=== PATIENT | male | born 1935 | race Caucasian/White ===

== ENCOUNTER → 2017-01-16 | Outpatient (CLI) | payer BC ==
[~2017-01-16] MED LIST: ASPCH81 PO; CHOL100010 PO; CLTP PO; ESTER C PO; GARLTAB3 PO; HYDC25 PO; ISOS60TA25 PO; LISI-461 PO; NITR0.4S UT; OCUVITE PO; OMEG10007 PO; PSYL55.43; SELENIUM PO; SIMV20TA2 PO; flaxseed oil
[2017-01-16 09:36] LABS: BASO % 0.1 %; BASO ABS # 0.01 K/uL (0-0.2); COMPLETE YES; EOS % 2.2 %; HEMATOCRIT 39.2 % (42-52); IG% 0.3 %; LYMPH % 27.1 %; LYMPH ABS # 1.81 K/uL (1.2-3.4); MEAN CELL VOLUME 98.5 fL (80-100); MEAN CORPUSCULAR HEMOGLOBIN 33.2 pg (25-34); MEAN CORPUSCULAR HGB CONC 33.7 g/dl (32-36); MONO % 10.3 %; PLATELET COUNT 238 K/uL (130-400); RED BLOOD COUNT 3.98 M/uL (4.7-6.1); WHITE BLOOD COUNT 6.69 K/uL (4.8-10.8)
[2017-01-16 10:35] LABS: ALT/SGPT 25 U/L (12-78); AST/SGOT 22 U/L (15-37); BLOOD UREA NITROGEN 28 mg/dl (7-18); BUN/CREATININE RATIO 20.3 (10-20); CARBON DIOXIDE 28 mmol/L (21-32); CHLORIDE 105 mmol/L (98-107); GLUCOSE 95 mg/dl (70-99); SODIUM 140 mmol/L (136-145); TRIGLYCERIDES 107 mg/dl (0-150); URIC ACID 5.4 mg/dl (2.6-7.2); VERY LOW DENSITY LIPOPROT CALC 21 mg/dl
[2017-01-16 10:41] LABS: ALB/GLOB RATIO 1.2 (0.9-2); ALKALINE PHOSPHATASE 78 U/L (45-117); CHOLESTEROL 113 mg/dl (0-200); CHOLESTEROL/HDL RATIO 2.8; HDL CHOLESTEROL 41 mg/dl; LDL CHOLESTEROL CALCULATED 51 mg/dl; PHOSPHORUS 2.6 mg/dl (2.5-4.9); PROSTATE SPECIFIC ANTIGEN 0.025 ng/ml (0.000-4.000); THYROID STIMULATING HORMONE 0.548 uIu/ml (0.300-4.500)
[2017-01-16 10:51] LABS: ESTIMATED AVERAGE GLUCOSE 123 mg/dl; HA1C FLAG Normal (Normal)
[2017-01-17 12:07] LABS: C-REACTIVE PROT HIGHSEN 1.4 MG/L
--- NOTE | 2017-01-21 11:38 | CODING QUERY MEDICAL NECESSITY ---
SUPPORTING DIAGNOSIS NEEDED Dr. Doshi, A supporting diagnosis is required for the test/procedure performed on this patient in order for us to be reimbursed by the patient's insurance. Please provide a supporting diagnosis for the following test/procedure listed below next to the test name along with your signature. *If there is no additional diagnosis for this patient that would support the following test/procedure please document that below next to the test/procedure. Test(s)/Procedure(s) that require a supporting diagnosis: * ([id number]) C-REACTIVE PROTEIN HIGH SENSITIVITY DIAGNOSIS: DATE OF SERVICE: 01/16/17 Provider Signature: Date: Thank you Thomas Martinez [facility] Information Management Once completed, please kindly fax back to [phone] For questions please call [phone]
== END | disposition home or self-care (01) ==
LOC: C.LAB 08:20
PROVIDERS: ATTEND Family Medicine
DX: R73.09 Other abnormal glucose (principal); E55.9 Vitamin D deficiency, unspecified; D51.9 Vitamin B12 deficiency anemia, unspecified; N40.0 Benign prostatic hyperplasia without lower urinary tract symptoms

== ENCOUNTER → 2017-04-11 | Outpatient (CLI) | payer BC ==
--- NOTE | 2017-04-11 17:34 | DIAGNOSTIC IMAGING REPORT ---
BILATERAL LOWER EXTREMITY VENOUS DOPPLER HISTORY: RIGHT LEG, PAIN AND SWELLING COMPARISON STUDY: Duplex study 03/11/2007. FINDINGS: There is normal compressibility, flow, and augmentation within the right lower extremity deep venous system. There is limited visualization of the right common femoral vein due to body habitus. IMPRESSION: No evidence of deep venous thrombosis within the right lower extremity. Electronically signed by: David Mojica M.D. 04/11/2017 5:33 PM Dictated Date/Time: 04/11/2017 5:31 PM
== END | disposition home or self-care (01) ==
LOC: C.ULTR 16:56
PROVIDERS: ATTEND Family Medicine
DX: M79.604 Pain in right leg (principal); M79.89 Other specified soft tissue disorders

== ENCOUNTER → 2017-05-21 | Outpatient (CLI) | payer BC | END | disposition home or self-care (01) | LOC: C.MAMM 13:19 | PROVIDERS: ATTEND Family Medicine | DX: M81.0 Age-related osteoporosis without current pathological fracture (principal) ==

== ENCOUNTER → 2017-05-27 | Outpatient (CLI) | payer BC ==
--- NOTE | 2017-05-27 08:29 | DIAGNOSTIC IMAGING REPORT ---
KUB CLINICAL HISTORY: 82 years-old Male presenting with malignant neoplasm of the prostate, nephrolithiasis. TECHNIQUE: Single supine view of the abdomen was obtained. COMPARISON: 05/03/2014. FINDINGS: Stool and bowel gas degrade evaluation of the renal shadows. Allowing for this limitation, no convincing calcifications project over the kidneys or along the courses of the ureters. Moderate stool burden in the right colon. A segment of small bowel in the left abdomen measures 3.4 cm in diameter, which may be secondary to magnification in the absence of abdominal symptoms. Extensive degenerative changes of the spine again noted. IMPRESSION: 1. No radiographic evidence of nephrolithiasis. Electronically signed by: Wolf Cruz M.D. 05/27/2017 8:28 AM Dictated Date/Time: 05/27/2017 8:26 AM
== END | disposition home or self-care (01) ==
LOC: C.RAD 07:50
PROVIDERS: ATTEND Urology
DX: C61 Malignant neoplasm of prostate (principal); N20.0 Calculus of kidney

== ENCOUNTER 2017-11-06 10:27 | Emergency (ER) | payer BC ==
[2017-11-06 10:37] VITALS: TEMP 36.5
[2017-11-06 11:50] LABS: BASO % 0.1 %; BASO ABS # 0.01 K/uL (0-0.2); HEMATOCRIT 35.4 % (42-52); HEMOGLOBIN 12.8 g/dL (14.0-18.0); IG# 0.01 K/uL (0.00-0.02); LYMPH % 11.8 %; MEAN CELL VOLUME 94.1 fL (80-100); MEAN CORPUSCULAR HGB CONC 36.2 g/dl (32-36); MEAN PLATELET VOLUME 9.4 fL (7.4-10.4); MONO % 7.7 %; MONO ABS # 0.59 K/uL (0.11-0.59); NEUT % 80.3 %; NEUT ABS # 6.13 K/uL (1.4-6.5); PLATELET COUNT 205 K/uL (130-400); RED CELL DISTRIBUTION WIDTH CV 13.2 % (11.5-14.5); RED CELL DISTRIBUTION WIDTH SD 45.6 fL (36.4-46.3); WHITE BLOOD COUNT 7.64 K/uL (4.8-10.8)
[2017-11-06 12:16] LABS: ALBUMIN 3.6 gm/dl (3.4-5.0); ALT/SGPT 22 U/L (12-78); BLOOD UREA NITROGEN 27 mg/dl (7-18); CARBON DIOXIDE 27 mmol/L (21-32); CREATININE 1.43 mg/dl (0.60-1.40); GLUCOSE 124 mg/dl (70-99); LIPASE 263 U/L (73-393); POTASSIUM 3.7 mmol/L (3.5-5.1); SODIUM 135 mmol/L (136-145)
[2017-11-06 12:19] LABS: ALKALINE PHOSPHATASE 84 U/L (45-117); AST/SGOT 22 U/L (15-37); TOTAL PROTEIN 6.9 gm/dl (6.4-8.2)
--- NOTE | 2017-11-06 12:23 | DIAGNOSTIC IMAGING REPORT ---
(RENAL)RETROPERITON COMP HISTORY: Hematuria hematuria COMPARISON: None. FINDINGS: Right kidney: Maximum dimension 8.2 cm. No evidence for hydronephrosis. Mild cortical atrophy. Left kidney: Maximum dimension 10.7 cm. No evidence for hydronephrosis. Normal corticomedullary differentiation and cortical thickness. Bladder: No bladder wall thickening. The bilateral ureteral jets were identified. IMPRESSION: Mild cortical atrophy/scarring right kidney. Otherwise negative study. The above report was generated using voice recognition software. It may contain grammatical, syntax or spelling errors. Electronically signed by: Lambert Carlin M.D. 11/06/2017 12:21 PM Dictated Date/Time: 11/06/2017 12:19 PM
[2017-11-06] MEDS ORDERED: ISR/5 PO (12:39)
[2017-11-06] MEDS ORDERED: ISOS60TA25 PO (12:39)
[2017-11-06] MEDS ORDERED: OMEG10007 PO (12:39)
[2017-11-06] MEDS ORDERED: CHOL1000 PO (12:39)
[2017-11-06] MEDS ORDERED: ASPI81TA28 PO (12:39)
[2017-11-06] MEDS ORDERED: HYDR12.55 PO (12:39)
[2017-11-06] MEDS ORDERED: SIMV20TA2 PO (12:39)
[2017-11-06] MEDS ORDERED: CALCCAP15 PO (12:39)
[2017-11-06] MEDS ORDERED: MULT-190 PO (12:39)
[2017-11-06] MEDS ORDERED: LISI-461 PO (12:39)
[2017-11-06] MEDS ORDERED: BIOF500T PO (12:39)
[2017-11-06] MEDS ORDERED: NTRGSL/4 UT (12:39)
[2017-11-06] MEDS ORDERED: SELE1TAB5 PO (12:39)
[2017-11-06] MEDS ORDERED: PSYL0.524 PO (12:39)
[2017-11-06 13:16] VITALS: BP 133/64; PULSE 63; O2SAT 95
--- NOTE | 2017-11-06 16:46 | EMERGENCY ROOM VISIT NOTE ---
History Report prepared by Suhail: Oh Smith Under the Supervision of: Dr. Erick Goldstein D.O. First contact with patient: 10:52 Chief Complaint: URINARY SYMPTOMS Stated Complaint: BLEEDING FROM PENIS Nursing Triage Summary: Pt. reports that he woke up this morning and went to the bathroom to void. He states that after he voided, he wiped the tip of his penis and there was blood on the toilet paper. He denies any other urinary symptoms, flank pain or abdominal pain. Reports history of kidney stone years ago. History of Present Illness The patient is a 82 year old male who presents to the Emergency Room with complaints of hematuria that began this morning. He has a past medical history of cellulitis, an aortic valve replacement, and kidney stones. He woke up this morning as usual and went to the bathroom. After he was finished, he wiped the tip of his penis with toilet paper and found a couple spots of blood. He could not see if there was any blood in his stream. Pt denies recent trauma, falls, headache, change in vision, fevers, chest pain, shortness of breath, abdominal pain, nausea, vomiting, diarrhea, back pain, pain with urination, urinary frequency, and melena. When he arrived to the ER, he gave a urine sample and states that he did not see any gross amount of blood. He takes a baby Aspirin daily without any other blood thinners. Source of History: patient Onset: this morning Position: other () Symptom Intensity: mild Quality: other (Hematuria) Timing: constant Associated Symptoms: No fevers, No headache, No chest pain, No SOB, No nausea, No vomiting, No abdominal pain, No back pain, No melena, No diarrhea, No urinary symptoms (burning, frequency) Review of Systems See HPI for pertinent positives & negatives. A total of 10 systems reviewed and were otherwise negative. Past Medical & Surgical Medical Problems: (1) Cellulitis (2) Kidney stone Surgical Problems: (1) H/O aortic valve replacement Family History Omitted secondary to the patient's age. Social History Smoking Status: Never Smoker Smokeless Tobacco Use: No Drug Use: none Marital Status: single Housing Status: lives alone Occupation Status: retired Current/Historical Medications Scheduled Aspirin (Aspirin Ec), 81 MG PO DAILY Bioflavonoid Products (Dilcia-C), 1 TAB PO DAILY Calcium Carbonate-Cholecalcife (Calcium Plus Vitamin D3), 2 CAP PO DAILY Cholecalciferol (Vitamin D3), 1 TAB PO DAILY Fish Oil ([place]-3), 2 CAP PO DAILY Hydrochlorothiazide (Hydrochlorothiazide), 1 TAB PO DAILY Isosorbide Dinitrate (Isordil), 5 MG PO DAILY Isosorbide Mononitrate Ext Rel (Imdur Ext Rel), 60 MG PO QAM Lisinopril (Zestril), 10 MG PO DAILY Nitroglycerin (Nitrostat), 0.4 MG UT PRN Ocuvite Preservision (Ocuvite Preservision), 1 TAB PO DAILY Psyllium (Metamucil), 1 CAP PO DAILY Selenium-Yeast (Selenium), 200 MCG PO UD Simvastatin (Zocor), 20 MG PO QPM Allergies Coded Allergies: Niacin (Unverified Adverse Reaction, Intermediate, hot flashes, 11/06/17) Physical Exam Vital Signs Date Time Temp Pulse Resp B/P (MAP) Pulse Ox O2 Delivery O2 Flow Rate FiO2 11/06/17 13:16 63 14 133/64 95 11/06/17 12:40 63 14 133/64 95 Room Air 11/06/17 11:30 62 16 147/70 97 Room Air 11/06/17 10:37 36.5 76 20 144/71 96 Room Air Physical Exam GENERAL: Sitting up in bed, alert, well appearing, well nourished, no distress, non-toxic EYE EXAM: normal conjunctiva. OROPHARYNX: no exudate, no erythema, lips, buccal mucosa, and tongue normal and mucous membranes are moist NECK: supple, no nuchal rigidity, no adenopathy, non-tender LUNGS: Clear to auscultation. Normal chest wall mechanics HEART: no murmurs, S1 normal and S2 normal ABDOMEN: abdomen soft, non-tender, normo-active bowel sounds, no masses, no rebound or guarding. : Normal external genitalia. Small amount of dried blood on the underwear. SKIN: no rashes and no bruising UPPER EXTREMITIES: upper extremities are grossly normal. LOWER EXTREMITIES: No pitting edema. NEURO EXAM: Normal sensorium, cranial nerves II-XII grossly intact, normal speech, no gross weakness of arms, no gross weakness of legs. Medical Decision & Procedures ER Provider Diagnostic Interpretation: Radiology results as stated below per my review and the radiologist's interpretation: (RENAL)RETROPERITON COMP HISTORY: Hematuria hematuria COMPARISON: None. FINDINGS: Right kidney: Maximum dimension 8.2 cm. No evidence for hydronephrosis. Mild cortical atrophy. Left kidney: Maximum dimension 10.7 cm. No evidence for hydronephrosis. Normal corticomedullary differentiation and cortical thickness. Bladder: No bladder wall thickening. The bilateral ureteral jets were identified. IMPRESSION: Mild cortical atrophy/scarring right kidney. Otherwise negative study. The above report was generated using voice recognition software. It may contain grammatical, syntax or spelling errors. Electronically signed by: Lambert Carlin M.D. 11/06/2017 12:21 PM Dictated Date/Time: 11/06/2017 12:19 PM Laboratory Results 11/06/17 11:30 Red Blood Count 3.76, Mean Corpuscular Volume 94.1, Mean Corpuscular Hemoglobin 34.0, Mean Corpuscular Hemoglobin Concent 36.2, Mean Platelet Volume 9.4, Neutrophils (%) (Auto) 80.3, Lymphocytes (%) (Auto) 11.8, Monocytes (%) (Auto) 7.7, Eosinophils (%) (Auto) 0.0, Basophils (%) (Auto) 0.1, Neutrophils # (Auto) 6.13, Lymphocytes # (Auto) 0.90, Monocytes # (Auto) 0.59, Eosinophils # (Auto) 0.00, Basophils # (Auto) 0.01 11/06/17 11:30 Test 11/06/17 10:50 11/06/17 11:30 Urine Color YELLOW Urine Appearance CLEAR (CLEAR) Urine pH 5.5 (4.5-7.5) Urine Specific [place] 1.015 (1.000-1.030) Urine Protein NEG (NEG) Urine Glucose (UA) NEG (NEG) Urine Ketones NEG (NEG) Urine Occult Blood 2+ (NEG) Urine Nitrite NEG (NEG) Urine Bilirubin NEG (NEG) Urine Urobilinogen NEG (NEG) Urine Leukocyte Esterase NEG (NEG) Urine WBC (Auto) 0 /hpf (0-5) Urine RBC (Auto) >30 /hpf (0-4) Urine Hyaline Casts (Auto) 0 /lpf (0-5) Urine Epithelial Cells (Auto) 0-5 /lpf (0-5) Urine Bacteria (Auto) NEG (NEG) White Blood Count 7.64 K/uL (4.8-10.8) Red Blood Count 3.76 M/uL (4.7-6.1) Hemoglobin 12.8 g/dL (14.0-18.0) Hematocrit 35.4 % (42-52) Mean Corpuscular Volume 94.1 fL (80-100) Mean Corpuscular Hemoglobin 34.0 pg (25-34) Mean Corpuscular Hemoglobin Concent 36.2 g/dl (32-36) Platelet Count 205 K/uL (130-400) Mean Platelet Volume 9.4 fL (7.4-10.4) Neutrophils (%) (Auto) 80.3 % Lymphocytes (%) (Auto) 11.8 % Monocytes (%) (Auto) 7.7 % Eosinophils (%) (Auto) 0.0 % Basophils (%) (Auto) 0.1 % Neutrophils # (Auto) 6.13 K/uL (1.4-6.5) Lymphocytes # (Auto) 0.90 K/uL (1.2-3.4) Monocytes # (Auto) 0.59 K/uL (0.11-0.59) Eosinophils # (Auto) 0.00 K/uL (0-0.5) Basophils # (Auto) 0.01 K/uL (0-0.2) RDW Standard Deviation 45.6 fL (36.4-46.3) RDW Coefficient of Variation 13.2 % (11.5-14.5) Immature Granulocyte % (Auto) 0.1 % Immature Granulocyte # (Auto) 0.01 K/uL (0.00-0.02) Anion Gap 7.0 mmol/L (3-11) Estimated GFR () 51.8 Estimated GFR (Non- 44.7 BUN/Creatinine Ratio 19.1 (10-20) Calcium Level 9.0 mg/dl (8.5-10.1) Total Bilirubin 0.4 mg/dl (0.2-1) Direct Bilirubin 0.1 mg/dl (0-0.2) Aspartate Amino Transf (AST/SGOT) 22 U/L (15-37) Alanine Aminotransferase (ALT/SGPT) 22 U/L (12-78) Alkaline Phosphatase 84 U/L (45-117) Total Protein 6.9 gm/dl (6.4-8.2) Albumin 3.6 gm/dl (3.4-5.0) Lipase 263 U/L (73-393) Laboratory results per my review. ED Course ED COURSE: Vital signs were reviewed and showed normal vitals The patients medical record was reviewed The above diagnostic studies were performed and reviewed. ED treatments and interventions as stated above. 1052: The patient was evaluated in room C9. A complete history and physical examination was performed. 1300: Upon reevaluation, the patient is resting.I discussed my findings with the patient and he understands and agrees with the treatment plan. Based on the patients age, coexisting illnesses, exam and lab findings the decision to treat as an outpatient was made. The patient remained stable while under my care. The patient appeared well at the time of discharge. Medical Decision Differential diagnoses include, but are not limited to: UTI, proctitis, prostatitis, urethral trauma, cancer, renal cyst, and kidney stone. Patient is a 82-year-old male who presents to ER for blood at the tip of his penis following voiding this morning. No trauma. No other complaints. No blood thinners. CBC along with BMP, LFTs, bilirubin and lipase is unremarkable. UA was unremarkable. Ultrasound of the kidneys and bladder shows no acute pathology. Urine did not show gross hematuria. Based on his presentation I felt was reasonable to discharge him and have him follow-up as an outpatient. He will follow-up with his urologist within the week. Discussed with Pt concerning signs and symptoms to watch out for. Pt was instructed to follow up with their PCP and discussed with the patient their option to return to the ED at anytime for persistent or worsening symptoms. The appropriate anticipatory guidance and out-patient management, including indications for return to the emergency department, were explained at length to the patient and understood. Medication Reconcilliation Current Medication List: was personally reviewed by me Blood Pressure Screening Patient's blood pressure: Normal blood pressure Blood pressure disposition: Did not require urgent referral Impression Primary Impression: Hematuria Scribe Attestation The scribe's documentation has been prepared under my direction and personally reviewed by me in its entirety. I confirm that the note above accurately reflects all work, treatment, procedures, and medical decision making performed by me. Departure Information Dispostion Home / Self-Care Referrals Óscar Doshi M.D. (PCP) Kris Sifuentes M.D. Forms HOME CARE DOCUMENTATION FORM, IMPORTANT VISIT INFORMATION Patient Instructions Hematuria Poss Causes, My [employer] Additional Instructions Please follow up with your primary care doctor or if you are a student, [facility] with in the next 24 hours. Any worsening of your symptoms, please return to the ED immediately. This includes any fevers greater than 100.4, worsening pain, chest pain, shortness breath, persistent nausea, vomiting, unable to eat or drink, or any other concerning signs or symptoms from your standpoint. Problem Qualifiers Primary Impression: Hematuria Hematuria type: unspecified type Qualified Codes: R31.9 - Hematuria, unspecified
== END 2017-11-06 13:10 | disposition home or self-care (01) ==
LOC: C.EDB 10:28 → C.EDC 13:10
DX: R31.9 Hematuria, unspecified (principal); Z79.82 Long term (current) use of aspirin; Z95.2 Presence of prosthetic heart valve; Z87.442 Personal history of urinary calculi; Z88.9 Allergy status to unspecified drugs, medicaments and biological substances

== ENCOUNTER → 2017-11-11 | Outpatient (CLI) | payer BC ==
[~2017-11-11] MED LIST changes: -ASPCH81 PO; +ASPI81TA28 PO; +BIOF500T PO; +CALCCAP15 PO; +CHOL1000 PO; -CHOL100010 PO; -CLTP PO; -ESTER C PO; -GARLTAB3 PO; -HYDC25 PO; +HYDR12.55 PO; +ISR/5 PO; +MULT-190 PO; -NITR0.4S UT; +NTRGSL/4 UT; -OCUVITE PO; +PSYL0.524 PO; -PSYL55.43; +SELE1TAB5 PO; -SELENIUM PO; -flaxseed oil
[2017-11-11 10:37] LABS: BASO % 0.2 %; BASO ABS # 0.01 K/uL (0-0.2); EOS ABS # 0.13 K/uL (0-0.5); HEMATOCRIT 38.3 % (42-52); HEMOGLOBIN 13.2 g/dL (14.0-18.0); IG# 0.01 K/uL (0.00-0.02); LYMPH % 26.6 %; LYMPH ABS # 1.75 K/uL (1.2-3.4); MEAN CELL VOLUME 98.5 fL (80-100); MEAN CORPUSCULAR HEMOGLOBIN 33.9 pg (25-34); MEAN CORPUSCULAR HGB CONC 34.5 g/dl (32-36); MEAN PLATELET VOLUME 11.6 fL (7.4-10.4); MONO % 11.2 %; MONO ABS # 0.74 K/uL (0.11-0.59); NEUT % 59.8 %; NEUT ABS # 3.94 K/uL (1.4-6.5); PLATELET COUNT 208 K/uL (130-400); RED CELL DISTRIBUTION WIDTH CV 13.4 % (11.5-14.5); RED CELL DISTRIBUTION WIDTH SD 48.1 fL (36.4-46.3); WHITE BLOOD COUNT 6.58 K/uL (4.8-10.8)
[2017-11-11 10:47] LABS: ALBUMIN 3.7 gm/dl (3.4-5.0); ALT/SGPT 21 U/L (12-78); AST/SGOT 18 U/L (15-37); BLOOD UREA NITROGEN 24 mg/dl (7-18); CALCIUM 8.8 mg/dl (8.5-10.1); CARBON DIOXIDE 28 mmol/L (21-32); CHOLESTEROL 114 mg/dl (0-200); CREATININE 1.36 mg/dl (0.60-1.40); GLUCOSE 110 mg/dl (70-99); LDL CHOLESTEROL CALCULATED 53 mg/dl; SODIUM 137 mmol/L (136-145); URIC ACID 4.8 mg/dl (2.6-7.2)
[2017-11-11 10:56] LABS: ALKALINE PHOSPHATASE 82 U/L (45-117); TRANSFERRIN 232 mg/dl (200-360)
[2017-11-11 12:14] LABS: HEMOGLOBIN A1C 5.9 % (4.5-5.6)
== END | disposition home or self-care (01) ==
LOC: C.LABBC 08:02
PROVIDERS: ATTEND Family Medicine
DX: E88.81 Metabolic syndrome and other insulin resistance (principal); E55.9 Vitamin D deficiency, unspecified; D51.9 Vitamin B12 deficiency anemia, unspecified; E78.9 Disorder of lipoprotein metabolism, unspecified; R53.83 Other fatigue